=== PATIENT | female | born 1980 | race Caucasian/White ===

== ENCOUNTER 2019-09-23 22:36 | Emergency (ER) | payer OTHER ==
[~2019-09-23] VITALS: Ht 157.5 cm; Wt 65.9 kg
--- NOTE | 2019-09-24 01:16 | PHYS DOC ---
Past History Past Medical History: Fibromyalgia, Sciatica Adult General Chief Complaint Chief Complaint: BACK PAIN OR INJURY.. " I first injuried my back at age 17.. fracture tailbone.. and had problems ever since.. I took muscle relaxants and Percocet is not helping the pain I did get adjustment at the chiropractor and now back pain seems worse... HPI HPI Patient is a 39 year old female who presents with above hx and complaints of increasing back pain last few days. Patient states her back pain has been gradually increasing the last 2 weeks. Patient denies any injury or excessive lifting. Patient states she has chronic back pain and has had numerous workups including MRIs. Patient states her back pain started after fall at age 17. Patient denies any problems with defecation or urination. No history of fevers. No history of cancer .No history immunosuppression. No history of travel. Does have a history of fibromyalgia. Pt. follows at [facility] Review of Systems Review of Systems Constitutional: Denies fever or chills [] Eyes: Denies change in visual acuity, redness, or eye pain [] HENT: Denies nasal congestion or sore throat [] Respiratory: Denies cough or shortness of breath [] Cardiovascular: No additional information not addressed in HPI [] GI: Denies abdominal pain, nausea, vomiting, bloody stools or diarrhea [] : Denies dysuria or hematuria [] Musculoskeletal: Complains of exacerbation of her chronic back pain Integument: Denies rash or skin lesions [] Neurologic: Denies headache, focal weakness or sensory changes [] Endocrine: Denies polyuria or polydipsia [] All other systems were reviewed and found to be within normal limits, except as documented in this note. Family History Family History Noncontributory Current Medications Current Medications See nursing for home medications Allergies Allergies No known drug allergies Physical Exam Physical Exam Constitutional: Reports moderately acute distress, non-toxic appearance. [] HENT: Normocephalic, atraumatic, bilateral external ears normal, oropharynx moist, no oral exudates, nose normal. [] Eyes: PERRLA, EOMI, conjunctiva normal, no discharge. [] Neck: Normal range of motion, no tenderness, supple, no stridor. [] Cardiovascular:Heart rate regular rhythm, no murmur [] Lungs & Thorax: Bilateral breath sounds equal apex on auscultation [] Abdomen: Bowel sounds normal, soft, no tenderness, no masses, no pulsatile masses. [] Skin: Warm, dry, no erythema, no rash. [] Back: No tenderness, no CVA tenderness. [] Extremities: No tenderness, no cyanosis, no clubbing, ROM intact, no edema. [] Is ambulatory without problems. Neurologic: Alert and oriented X 3, normal motor function, normal sensory function, no focal deficits noted. []DTRs are +2 at patella. Mild increase and sciatic complaints on straight leg lift. Psychologic: Affect anxious, judgement normal, mood normal. [] EKG EKG [] Radiology/Procedures Radiology/Procedures [][place] [address] IMAGING REPORT Signed PATIENT: JUAN DANIEL SMITH ACCOUNT: [id number] : 1980 LOCATION: ER AGE: 39 SEX: F EXAM STATUS: REG ER ORD. PHYSICIAN: FATOUMATA RANGEL MD REASON: Lumbar/sacral pain, worse after adjust. by chiropractor, abd pain PROCEDURE: CT LUMBAR SPINE WO CONTRAST INDICATION: Pain at lumbar spine COMPARISON: None. TECHNIQUE: Axial CT images obtained through the lumbar spine. One or more of the following individualized dose reduction techniques were utilized for this examination: 1. Automated exposure control; 2. Adjustment of the mA and/or kV according to patient size; 3. Use of iterative reconstruction technique. FINDINGS: No evidence of acute fracture or dislocation. There are some mild degenerative changes the lumbar spine including disc protrusions as well as facet hypertrophy. This includes mild broad-based posterior disc protrusions at L3-4, L4-5 and L5-S1. At the partially visualized abdomen there is apparent gallstones. There is also some high density seen at the distal common bile duct IMPRESSION: * Mild degenerative changes the lumbar spine without acute fracture or dislocation. * At the partially visualized abdomen there are stones within the gallbladder. There is also some high density material at the distal common bile duct which could be secondary to some tiny stones within. Would correlate with symptoms. Electronically signed by: Venancio Posadas MD (09/24/2019 3:08 AM) [id number] DICTATED AND SIGNED BY: VENANCIO POSADAS MD DATE: 09/24/19 0308 CC: FIDELINA COBB; FATOUMATA RANGEL MD ~ Course & Med Decision Making Course & Med Decision Making Pertinent Labs and Imaging studies reviewed. (See chart for details) Use ice packs. Take meds as previous directed. For marked pain may take Vicoprofen up to 4 times a day. Follow-up with primary care. Consider follow-up with pain center. Consider possible PT and pain center for steroid injections. May need consult with neurosurgery due to her disc disease particularly at L3-4 and 5 and S1. Impression: 1. Exacerbation of chronic back pain 2. History of fibromyalgia 3. Findings of multiple level degenerative joint changes L3-4-5 and S1 [] Dragon Disclaimer Dragon Disclaimer This electronic medical record was generated, in whole or in part, using a voice recognition dictation system. Departure Departure: Disposition: 01 HOME/RESIDENCE PRIOR TO ADM Condition: STABLE Referrals: FIDELINA COBB (PCP) Dragon Disclaimer This chart was dictated in whole or in part using Voice Recognition software in a busy, high-work load, and often noisy Emergency Department environment. It may contain unintended and wholly unrecognized errors or omissions. Dragon Disclaimer This chart was dictated in whole or in part using Voice Recognition software in a busy, high-work load, and often noisy Emergency Department environment. It may contain unintended and wholly unrecognized errors or omissions. FATOUMATA RANGEL MD Sep 24, 2019 01:16
[2019-09-24 01:17] VITALS: BP 125/89
[2019-09-24] MEDS ORDERED: MORPHINE SULFATE 10 MG/ML SYRINGE. SQ ONE (02:00)
[2019-09-24] MEDS ORDERED: ORPHENADRINE CITRATE 60 MG/2 ML VIAL. IM ONE (02:00)
[2019-09-24] MEDS ORDERED: methylPREDNISolone ACETATE 40 MG/ML VIAL. IM ONE (02:00)
[2019-09-24] MEDS ORDERED: KETOROLAC 60 MG/2 ML VIAL. IM ONE (02:00)
[2019-09-24 02:30] LABS: BARBITURATES NEG (NEG); BENZODIAZEPINES NEG (NEG); CANNABINOIDS NEG (NEG); COCAINE NEG (NEG); METHADONE NEG (NEG); OPIATES NEG (NEG); PHENCYCLIDINE NEG (NEG)
[2019-09-24 02:33] LABS: AMPHETAMINE/METHAMPHETAMINE NEG (NEG)
--- NOTE | 2019-09-24 03:11 | RAD ---
INDICATION: Pain at lumbar spine COMPARISON: None. TECHNIQUE: Axial CT images obtained through the lumbar spine. One or more of the following individualized dose reduction techniques were utilized for this examination: 1. Automated exposure control; 2. Adjustment of the mA and/or kV according to patient size; 3. Use of iterative reconstruction technique. FINDINGS: No evidence of acute fracture or dislocation. There are some mild degenerative changes the lumbar spine including disc protrusions as well as facet hypertrophy. This includes mild broad-based posterior disc protrusions at L3-4, L4-5 and L5-S1. At the partially visualized abdomen there is apparent gallstones. There is also some high density seen at the distal common bile duct IMPRESSION: * Mild degenerative changes the lumbar spine without acute fracture or dislocation. * At the partially visualized abdomen there are stones within the gallbladder. There is also some high density material at the distal common bile duct which could be secondary to some tiny stones within. Would correlate with symptoms. Electronically signed by: Jeyson Villasenor MD (09/24/2019 3:08 AM) [id number]
[2019-09-24 03:27] LABS: BACTERIA,URINE FEW /HPF (0-FEW); BILIRUBIN,URINE NEG (NEG); CLARITY,URINE CLEAR; COLOR,URINE YELLOW; GLUCOSE,URINE NEG (NEG); NITRITE,URINE NEG (NEG); RBC,URINE OCC /HPF (0-2); SQUAMOUS EPITHELIAL CELL,UR OCC /LPF; UROBILINOGEN,URINE 0.2 mg/dL (0.2 mg/dL)
== END 2019-09-24 04:00 | disposition home or self-care (01) ==
LOC: ER 22:36
DX: G89.29 Other chronic pain (principal); M54.9 Dorsalgia, unspecified; M79.7 Fibromyalgia
CPT/HCPCS: 36415; 72131; 80307; 81001; 96372; 99284; J1030; J1885; J2270; J2360; 81025

== ENCOUNTER 2019-10-01 11:41 | Emergency (ER) | payer OTHER ==
[~2019-10-01] VITALS: Ht 157.5 cm; Wt 65.9 kg
[2019-10-01] MEDS ORDERED: IV NORMAL SALINE 1,000ML 1,000 ML IV SCH (11:53)
[2019-10-01] MEDS ORDERED: ONDANSETRON PF 4 MG/2 ML VIAL. IVP ONE (12:00)
--- NOTE | 2019-10-01 12:02 | PHYS DOC ---
Past History Past Medical History: Fibromyalgia, Sciatica Past Surgical History: Appendectomy Additional Past Surgical Histo: ganglion cyst removal R wrist Alcohol Use: None Adult General Chief Complaint Chief Complaint: CHEST PAIN HPI HPI 39F with PMH of fibromyalgia, hypothyroidism, p/w intermittent epigastric pain, dull nonradiating over last 1.5 weeks or so. No obvious precipitant, but her current pain began shortly after breakfast this morning, with about 1.5 hours of active epigastric pain at time of my evaluation. A/w nausea, no vomiting. Did have loose BM recently, but no outright diarrhea. Prior appy. No other aggravating/alleviating factors. Seen 09/24 for back pain, no longer present with CTLS showing degen lumbar changes, as well as incidental GB stones and ?CBD stones. Review of Systems Review of Systems General: No fevers, chills. Eyes: No blurred vision, diplopia. ENT: No nasal congestion, sore throat. CV: No chest pain, edema. Resp: No shortness of breath, cough. GI: No vomiting. Reports epigastric pain, nausea. : No dysuria. Neuro: No headache, dizziness. MSK: No myalgia, arthralgia. Skin: No acute rash, lesion. All other systems were reviewed and found to be within normal limits, except as documented in this note. Allergies Allergies Allergies Coded Allergies Type Severity Reaction Last Updated Verified No Known Drug Allergies 09/24/19 No Physical Exam Physical Exam Gen: NAD. Well nourished. Head: NC/AT Eyes: No scleral icterus. No conjunctival injection. ENT: MMM. Posterior OP clear. Neck: Supple. NT. CV: RRR. Peripheral pulses intact. Resp: CTAB. Abd: Soft. ND. Mild epigastric TTP without R/G/R. No flank percussion TTP. MSK: No peripheral cyanosis. No edema. Neuro: Awake and alert. Skin: Warm. Dry. Psych: Appropriate mood & affect. EKG EKG EKG performed at 1204. Sinus rhythm. HR 72. Normal intervals. No STEMI. Interpreted by me. Radiology/Procedures Radiology/Procedures Abdomen Limited US: Liver: Prominent bile ducts Gallbladder: Partially contracted with gallstones within. IVC: Partially distended at level of liver. Common Bile Duct: 8 mm Pancreas: No gross abnormality identified in visualized portions of pancreas. Right Kidney: No hydronephrosis. IMPRESSION: * Gallstones are visualized. * Intrahepatic and extrahepatic biliary ductal dilatation. A more distal obstructive process such as a stone or stricture is not excluded given this finding. Electronically signed by: Jeyson Villasenor MD (10/01/2019 12:46 PM) [facility] [place] Course & Med Decision Making Course & Med Decision Making Pertinent Labs and Imaging studies reviewed. (See chart for details) In summary, 39-year-old female who presents for evaluation of colicky epigastric pain, found to have cholelithiasis with concern for choledocholithiasis with dilated CBD of 8 mm. The patient was seen for back pain about one week ago with CT lumbar spine showing partially visualized gallstones, with opacities possibly in the CBD, which also points towards possibility of choledocholithiasis. The patient has marginally elevated LFTs and normal alkaline phosphatase and lipase. The patient is comfortable and well-appearing. Call to gastroenterology for further recommendations, possible need for transfer for MRCP, and if indicated, ERCP. 1314: Spoke with NELLIE Dockery, for Dr. Gaytan of GI re: findings. In agreement that transfer for MRCP and GI consult are appropriate, given no GI coverage or MRCP capability at this facility. Patient ok with transfer to [facility]. Awaiting hospitalist callback. 1352: Transfer accepted by Dr. Hoang. Daniela Disclaimer Daniela Disclaimer This electronic medical record was generated, in whole or in part, using a voice recognition dictation system. Departure Departure: Impression: Primary Impression: Choledocholithiasis Disposition: 05 TRANSFER OTHER ([facility]) Admitting Physician: Other (Accepting physician Dr. Hoang) Condition: STABLE Referrals: FIDELINA COBB (PCP) SCAR GILBERT DO Oct 01, 2019 12:02
[2019-10-01 12:18] LABS: BASO % 1 % (0-3); EOS # 0.1 x10^3/uL (0.0-0.7); EOS % 1 % (0-3); HEMOGLOBIN 15.2 g/dL (12.0-15.5); LYMPH # 1.6 x10^3/uL (1.0-4.8); LYMPH % 21 % (24-48); MEAN CORPUSCULAR HEMOGLOBIN 31 pg (25-35); MEAN CORPUSCULAR HGB CONC 34 g/dL (31-37); MEAN CORPUSCULAR VOLUME 91 fL (79-100); MONO # 0.4 x10^3/uL (0.0-1.1); MONO % 6 % (0-9); NEUT # 5.3 x10^3uL (1.8-7.7); NEUT % 71 % (31-73); PLATELET COUNT 303 x10^3/uL (140-400); RED BLOOD COUNT 4.97 x10^6/uL (3.50-5.40); RED CELL DISTRIBUTION WIDTH 12.3 % (11.5-14.5); WHITE BLOOD COUNT 7.4 x10^3/uL (4.0-11.0)
[2019-10-01 12:25] LABS: CALCIUM 8.8 mg/dL (8.5-10.1); CREATININE 0.7 mg/dL (0.6-1.0); GFR 94.2; POTASSIUM 3.8 mmol/L (3.5-5.1)
[2019-10-01 12:29] LABS: PREG TEST PT QUAL NEGATIVE (NEG)
[2019-10-01 12:31] LABS: ALBUMIN 4.2 g/dL (3.4-5.0); ALBUMIN/GLOBULIN RATIO 1.3 (1.0-1.7); TOTAL BILIRUBIN 0.5 mg/dL (0.2-1.0); TOTAL PROTEIN 7.4 g/dL (6.4-8.2)
--- NOTE | 2019-10-01 12:49 | RAD ---
INDICATION : Right upper quadrant pain COMPARISON: None TECHNIQUE: Multiple ultrasound images obtained through the abdomen in grayscale and color. FINDINGS: Liver: Prominent bile ducts Gallbladder: Partially contracted with gallstones within. IVC: Partially distended at level of liver. Common Bile Duct: 8 mm Pancreas: No gross abnormality identified in visualized portions of pancreas. Right Kidney: No hydronephrosis. IMPRESSION: * Gallstones are visualized. * Intrahepatic and extrahepatic biliary ductal dilatation. A more distal obstructive process such as a stone or stricture is not excluded given this finding. Electronically signed by: Jeyson Villasenor MD (10/01/2019 12:46 PM) [facility] [place]
[2019-10-01 12:55] LABS: BILIRUBIN,URINE NEG (NEG); CLARITY,URINE HAZY; COLOR,URINE YELLOW; GLUCOSE,URINE NEG (NEG)
[2019-10-01 12:56] LABS: BACTERIA,URINE FEW /HPF (0-FEW); NITRITE,URINE NEG (NEG); SQUAMOUS EPITHELIAL CELL,UR MANY /LPF
[2019-10-01] MEDS ORDERED: LIDO:MAALOX 1:1 20 ML SINGLE DOSE. ONE (13:55)
[2019-10-01] MEDS ORDERED: LIDO:MAALOX 1:1 20 ML SINGLE DOSE. PO ONE (14:30)
--- NOTE | 2019-10-01 14:48 | EKG ---
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
[2019-10-01 15:03] VITALS: BP 118/68
== END 2019-10-01 15:24 | disposition short-term general hospital (02) ==
LOC: ER 11:41
DX: K80.50 Calculus of bile duct without cholangitis or cholecystitis without obstruction (principal); M79.7 Fibromyalgia; Z90.49 Acquired absence of other specified parts of digestive tract
CPT/HCPCS: 36415; 76705; 80053; 81001; 83690; 83735; 84484; 84703; 85025; 93005; 96374; 99285; J2405; J7030